=== PATIENT | female | born 1950 | race Caucasian/White ===

== ENCOUNTER 2022-01-26 12:28 | Emergency (ER) ==
[~2022-01-26] VITALS: Ht 167.6 cm; Wt 95.3 kg
[2022-01-26] MEDS ORDERED: AUGMENTIN 500-1 EACH PO (15:34)
== END 2022-01-26 15:38 | disposition home or self-care (01) ==
LOC: ER 12:39
DX: R20.2 Paresthesia of skin (principal)
CPT/HCPCS: 93970; 99282